=== PATIENT | male | born 1965 | race Caucasian/White ===

== ENCOUNTER 2016-06-07 08:31 | Emergency (ER) | payer MEDICAID ==
[~2016-06-07] VITALS: Ht 175.3 cm; Wt 75.0 kg
[~2016-06-07 08:31] MED LIST: KEPP500 PO; PHEN100C4 PO
[2016-06-07] MEDS: SODIUM CHLORIDE 0.9% 1,000 ML IV ONE ×2 (09:21→10:45)
[2016-06-07] MEDS: MORPHINE SULFATE 4 MG/ML CPJ (NOT FOR IM USE) IV STA ×2 (09:21→10:44)
[2016-06-07] MEDS: ONDANSETRON HCL 4MG/2ML VIAL IV STA ×2 (09:22→10:45)
[2016-06-07 10:10] LABS: BASOPHILS % 0.5 % (0.0-2.0); EOSINOPHILS % 0.4 % (0.0-5.0); HEMATOCRIT. 45.2 % (42.0-52.0); HEMOGLOBIN. 15.3 g/dL (14.0-18.0); LYMPHOCYTES % 8.4 % (20.0-50.0); MEAN CORPUSCULAR HEMOGLOBIN 30.6 pg (28.0-32.0); MEAN CORPUSCULAR HGB CONC 33.8 g/dL (31.0-37.0); MEAN CORPUSCULAR VOLUME 90.5 fL (80.0-94.0); MEAN PLATELET VOLUME 7.9 fl (7.4-10.4); MONOCYTES % 6.7 % (2.0-8.0); PLATELET 252 x1000/uL (130-400); RED BLOOD CELL COUNT 4.99 mill/uL (4.7-6.1); RED CELL DISTRIBUTION WIDTH 13.6 % (11.6-14.6)
[2016-06-07 10:14] LABS: INR 0.9; PROTHROMBIN TIME 9.7 sec
[2016-06-07 10:16] LABS: CHLORIDE 104 mEq/L (98-107); INDEX HEMOLYSI 1 (1-3); INDEX ICTERIC 1 (1-4); INDEX LIPEMIC 1 (1-3)
[2016-06-07 10:26] LABS: ALANINE AMINOTRANSFERASE 21 IU/L (13-61); ALBUMIN 3.7 g/dL (3.4-5.0); ANION GAP 13; CALCIUM 8.5 mg/dL (8.5-10.1); CARBON DIOXIDE 26 mEq/L (21-32); LIPASE 284 IU/L (73-393); UREA NITROGEN BLOOD 10 mg/dL (7-21); eGFR > 60 mL/min (>60)
[2016-06-07 10:49] LABS: CLARITY URINE CLEAR (CLEAR); COLOR URINE YELLOW (YELLOW); GLUCOSE URINE NEGATIVE (NEGATIVE); KETONES URINE TRACE (NEGATIVE); LEUKOCYTE ESTERASE URINE NEGATIVE (NEGATIVE); NITRITE URINE NEGATIVE (NEGATIVE); OCCULT BLOOD URINE NEGATIVE (NEGATIVE); PH URINE 5.5 (4.5-8.0); PROTEIN URINE NEGATIVE (NEGATIVE); SPECIFIC GRAVITY URINE 1.032 (1.005-1.030)
[2016-06-07] MEDS ORDERED: DIPHENHYDRAMINE 50MG/ML VIAL IV ONE (11:00)
[2016-06-07 11:22] LABS: *AMPHETAMINES SCREEN URINE PRESUMTIVE POSITIVE (NEGATIVE); *BARBITURATES SCREEN URINE NEGATIVE (NEGATIVE); *BENZODIAZEPINES SCREEN URINE NEGATIVE (NEGATIVE); *COCAINE SCREEN URINE NEGATIVE (NEGATIVE); CANNABINOID URINE SCREEN PRESUMTIVE POSITIVE (NEGATIVE); ECSTASY MDMA SCREEN URINE CONF.TEST INDICATED (NEGATIVE); METHADONE URINE SCREEN NEGATIVE (NEGATIVE); OPIATES URINE SCREEN NEGATIVE (NEGATIVE); PHENCYCLIDINE URINE SCREEN NEGATIVE (NEGATIVE)
[2016-06-07 13:49] VITALS: BP 124/70
[2016-06-07] MEDS ORDERED: SODIUM CHLORIDE 0.9% 10ML VIAL ONE (14:19)
[2016-06-07] MEDS ORDERED: IOHEXOL-300 100 ML BOTTLE ONE (14:19)
== END 2016-06-07 13:59 | disposition home or self-care (01) ==
LOC: ER 08:49
DX: F19.10 Other psychoactive substance abuse, uncomplicated (principal); R10.9 Unspecified abdominal pain; R11.2 Nausea with vomiting, unspecified; Z88.0 Allergy status to penicillin; Z79.899 Other long term (current) drug therapy
CPT/HCPCS: 36415; 71010; 74177; 80053; 80305; 81003; 83690; 85025; 85610; 96361; 96374; 96375; 99285; A4216; J1200; J2270; J2405; J7030; Q9967; Z7610

== ENCOUNTER 2017-08-17 20:07 | Emergency (ER) | payer MEDICAID | END 2017-08-18 00:36 | disposition left against medical advice (07) | LOC: ER 20:07 | DX: Z53.21 Procedure and treatment not carried out due to patient leaving prior to being seen by health care provider (principal) ==

== ENCOUNTER 2019-03-06 02:01 | Emergency (ER) | payer MEDICAID ==
[~2019-03-06] VITALS: Ht 180.3 cm; Wt 82.0 kg
[2019-03-06] MEDS ORDERED: IBUPROFEN 600MG TABLET PO ONE (06:30)
[2019-03-06 07:51] VITALS: BP 120/77
== END 2019-03-06 07:52 | disposition home or self-care (01) ==
LOC: ER 02:01
DX: S13.9XXA Sprain of joints and ligaments of unspecified parts of neck, initial encounter (principal); F17.200 Nicotine dependence, unspecified, uncomplicated; Z88.0 Allergy status to penicillin; W01.0XXA Fall on same level from slipping, tripping and stumbling without subsequent striking against object, initial encounter; Y93.89 Activity, other specified; Y92.89 Other specified places as the place of occurrence of the external cause; Y99.8 Other external cause status
CPT/HCPCS: 99284

== ENCOUNTER 2020-07-03 03:05 | Emergency (ER) | payer MEDICAID ==
[~2020-07-03] VITALS: Ht 170.2 cm; Wt 77.0 kg
[2020-07-03 03:08] VITALS: BP 124/78
== END 2020-07-03 07:54 | disposition left against medical advice (07) ==
LOC: ER 03:23
DX: Z53.21 Procedure and treatment not carried out due to patient leaving prior to being seen by health care provider (principal)

== ENCOUNTER 2020-07-03 09:17 | Emergency (ER) | payer MEDICAID ==
[~2020-07-03] VITALS: Ht 167.6 cm; Wt 75.0 kg
[2020-07-03] MEDS ORDERED: IBUPROFEN 400MG TABLET PO ONE (10:30)
[2020-07-03] MEDS ORDERED: ACETAMINOPHEN 325MG TABLET PO ONE (10:30)
[2020-07-03 10:54] VITALS: BP 123/82
== END 2020-07-03 13:47 | disposition left against medical advice (07) ==
LOC: ER 09:17
DX: M79.671 Pain in right foot (principal); G40.909 Epilepsy, unspecified, not intractable, without status epilepticus; F20.9 Schizophrenia, unspecified; F17.210 Nicotine dependence, cigarettes, uncomplicated; F12.10 Cannabis abuse, uncomplicated; Z88.0 Allergy status to penicillin
CPT/HCPCS: 99283

== ENCOUNTER 2020-09-07 16:16 | Emergency (ER) | payer MEDICAID ==
[~2020-09-07] VITALS: Ht 175.3 cm; Wt 78.0 kg
[2020-09-07] MEDS ORDERED: LEVETIRACETAM 500MG PREMIX 100 ML IV ONE (18:15)
[2020-09-07] MEDS ORDERED: KEPP500 MT (18:17)
[2020-09-07] MEDS ORDERED: PHEN100C4 MT (18:17)
[2020-09-07 18:42] LABS: BASOPHILS % 1.2 % (0.0-2.0); EOSINOPHILS % 1.7 % (0.0-5.0); HEMATOCRIT. 43.2 % (42.0-52.0); HEMOGLOBIN. 14.9 g/dL (14.0-18.0); LYMPHOCYTES % 34.3 % (20.0-50.0); MEAN CORPUSCULAR HEMOGLOBIN 30.8 pg (28.0-32.0); MONOCYTES % 7.8 % (2.0-8.0); PLATELET 358 x1000/uL (130-400); RED BLOOD CELL COUNT 4.85 mill/uL (4.7-6.1); RED CELL DISTRIBUTION WIDTH 14.4 % (11.6-14.6)
[2020-09-07 18:51] LABS: CHLORIDE 104 mEq/L (98-107)
[2020-09-07] MEDS ORDERED: PHENYTOIN SODIUM 1,000 MG in SODIUM CHLORIDE 0.9% 100 ML IV ONE (19:45)
[2020-09-08] MEDS ORDERED: LORAZEPAM 2MG/ML CPJ IM STA (00:12)
[2020-09-08 00:29] VITALS: BP 126/71
== END 2020-09-08 01:05 | disposition short-term general hospital (02) ==
LOC: ER 16:16
DX: G40.909 Epilepsy, unspecified, not intractable, without status epilepticus (principal); M21.371 Foot drop, right foot; R45.1 Restlessness and agitation; R03.0 Elevated blood-pressure reading, without diagnosis of hypertension; F20.9 Schizophrenia, unspecified; F12.10 Cannabis abuse, uncomplicated; Z88.0 Allergy status to penicillin; Z79.899 Other long term (current) drug therapy; Z87.891 Personal history of nicotine dependence
CPT/HCPCS: 36415; 80053; 80185; 85025; 96365; 96367; 99285; J1165; J1953; J2060; J7040; J7050; Z7610